=== PATIENT | female | born 1940 | race Caucasian/White ===

== ENCOUNTER 2018-05-06 10:33 | Outpatient (CLI) | payer MEDICARE | END 2018-05-06 10:34 | disposition home or self-care (01) | LOC: NAV DTY OP 10:33 | PROVIDERS: ATTEND Family Medicine | DX: E11.22 Type 2 diabetes mellitus with diabetic chronic kidney disease (principal); N18.4 Chronic kidney disease, stage 4 (severe); F03.90 Unspecified dementia, unspecified severity, without behavioral disturbance, psychotic disturbance, mood disturbance, and anxiety | CPT/HCPCS: 97802 ==